=== PATIENT | female | born 1990 | race Caucasian/White ===

== ENCOUNTER → 2022-10-04 12:34 | Outpatient (CLI) | payer OTHER, SELFPAY ==
[2022-10-04 13:56] LABS: Add Manual Diff / Slide Review NO; Basophils Absolute Auto 0 /uL (0-100); Basophils Percent Auto 0.3 % (0-2); Eosinophils Absolute Auto 200 /uL (0-450); Eosinophils Percent Auto 1.4 % (2-4); Hematocrit 37.5 % (36-46); Hemoglobin 12.3 g/dL (12.0-16.0); Lymphocytes Absolute Auto 1800 /uL (1100-4500); Lymphocytes Percent Auto 15.1 % (25-40); Mean Corpuscular HGB Conc 32.7 % (30-36); Mean Corpuscular Hemoglobin 28.1 PG (26-34); Mean Corpuscular Volume 86.1 fL (80-100); Monocytes Absolute Auto 800 /uL (0-900); Neutrophils Absolute Auto 9100 /uL (1500-7000); Neutrophils Percent Auto 76.2 % (50-75); Platelet Count 257 X10^3/uL (150-400); Red Blood Cell Count 4.36 X10^6/uL (4.0-5.2); Red Cell Distribution Width 13.2 % (11.6-14.8); White Blood Cell Count 11.9 X10^3/uL (4.5-11.0)
[2022-10-05 05:37] LABS: RPR Screen Non Reactive (Non Reactive)
[2022-10-05 11:27] LABS: Varicella IgG Antibody 1128 index (Immune >165)
[2022-10-05 16:41] LABS: Hepatitis B Surface Antigen NEGATIVE s/c (NEGATIVE)
[2022-10-05 17:08] LABS: HIV 1 & 2 Ab/Ag 4th Gen Combo NEGATIVE (NEGATIVE); Hep C Virus Ab w/Reflex Quant NEGATIVE s/c (NEGATIVE)
== END ==
PROVIDERS: PCP Internal Medicine; Referring Provider Obstetrics & Gynecology; Visit Provider Obstetrics & Gynecology
DX: Z34.81 Encounter for supervision of other normal pregnancy, first trimester (principal)
CPT/HCPCS: 80055; 86787; 86803; 86850; 86900; 86901; 87389

== ENCOUNTER → 2022-11-29 14:43 | Outpatient (CLI) | payer OTHER, SELFPAY ==
[2022-12-01 22:14] LABS: AFP Value 54.6 ng/mL (.); Gest Age on Col Date 18.3 weeks (.); Insulin Dep Diabetes No (.); OSBR Risk 1IN 6110 (.); Results Report (.); Test Results *Screen Negative* (.)
== END ==
PROVIDERS: PCP Internal Medicine; Referring Provider Obstetrics & Gynecology; Visit Provider Obstetrics & Gynecology
DX: Z34.82 Encounter for supervision of other normal pregnancy, second trimester (principal); Z3A.18 18 weeks gestation of pregnancy
CPT/HCPCS: 36415; 82105

== ENCOUNTER → 2022-12-15 10:16 | Outpatient (CLI) | payer OTHER, SELFPAY ==
--- NOTE | 2022-12-15 10:16 | DI.US.S_ITS ---
PROCEDURE: US OB >= 14 WEEKS FETUS INDICATIONS: 20 week anatomy OUTSIDE/PRIOR DATING DATA: Last menstrual period (LMP): 07/24/2022 LMP-based estimated date of delivery (ABHAY): 04/30/2023. First dating scan (date and location): 10/04/2022. Estimated date of delivery (ABHAY) from first dating scan: 04/26/2023 Working ABHAY is 04/30/2023. TECHNIQUE: Real-time scanning was performed of the fetus, with image documentation and biometric measurements. COMPARISON: [facility], , US OB <= 14 WEEKS FETUS, 10/04/2022, 12:20. FINDINGS: General: A single living intrauterine gestation is present. Presentation: Vertex. Placenta: Placental position is posterior right lateral , without previa. Amniotic fluid index: 14.7 cm, normal range is 5-24 cm. Single deepest vertical pocket is 5.0 cm. heart rate: 147 beats per minute. Maternal cervical canal: 3.8 cm long. Normal lower limit is 2.5 cm. biometrics: Biparietal diameter: 22 weeks 5 days Head circumference: 22 weeks 2 days Abdominal circumference: 21 weeks 5 days Femur length: 22 weeks 3 days Clinically estimated gestational age: 20 weeks 4 days Composite gestational age from present scan: 22 weeks 2 days Estimated weight and percentile: 473 g, 99th percentile Anatomic survey: Neuro: Ventricles are non-dilated at less than 10 mm. Cisterna magna is normal at 3-11 mm. Cerebellum is normal in size and morphology. Nuchal skin fold: Normal at less than 6 mm between 14-21 weeks gestational age. Face: Nose and lips, facial profile are normal. Spine: No evidence for spina bifida. Heart: 4-chambered heart is present, with normal ventricular outflow tracts. Diaphragm: Diaphragm is intact. Stomach: Left-sided stomach is present. Kidneys: No hydronephrosis. Normal is less than 5 mm in 2nd trimester, less than 7 mm in 3rd trimester. Cord: 3-vessel cord has orthotopic insertion. Bladder: Normal in size. Extremities: All 4 extremities identified. IMPRESSION: 1. Single living IUP redemonstrated and interval growth is greater than expected with estimated weight 99th percentile. Recommend short-term follow-up ultrasound to exclude early developing macrosomia. 2. Normal anatomic survey. We strive to produce accurate, complete, and clear reports of imaging services. To assist us in improving patient care, this report was composed using standard report templates and voice recognition software. Therefore, it may contain abnormal punctuation, insertions and/or omissions. Occasional wrong-word or sound-alike substitutions may occur. Though we review the report and make efforts to correct it, we do recommend that the report be read carefully in proper context to recognize any text inaccuracies. Dictated by: Edward MCCORMACK Interpreted: Randi Saenz MD on 12/15/2022 at 13:21 Transcribed by: ANURAG on 12/15/2022 at 13:23 Approved by: Randi Saenz M.D. on 12/15/2022 at 15:51
== END ==
PROVIDERS: PCP Internal Medicine; Referring Provider Obstetrics & Gynecology; Visit Provider Obstetrics & Gynecology
DX: Z34.82 Encounter for supervision of other normal pregnancy, second trimester (principal); Z3A.22 22 weeks gestation of pregnancy
CPT/HCPCS: 76811

== ENCOUNTER → 2022-12-26 14:27 | Outpatient (CLI) | payer OTHER, SELFPAY ==
[2022-12-26 20:12] LABS: Urine N gonorrhoeae NOT DETECTED
[2022-12-26 20:15] LABS: Urine Chlamydia NOT DETECTED
== END ==
PROVIDERS: PCP Internal Medicine; Visit Provider Obstetrics & Gynecology
DX: Z34.82 Encounter for supervision of other normal pregnancy, second trimester (principal); Z3A.24 24 weeks gestation of pregnancy
CPT/HCPCS: 87086; 87491; 87591

== ENCOUNTER → 2023-01-24 08:22 | Outpatient (CLI) | payer OTHER, SELFPAY ==
[2023-01-24 11:12] LABS: Hematocrit 33.6 % (36-46); Hemoglobin 11.5 g/dL (12.0-16.0)
[2023-01-24 11:49] LABS: GTT (PREG) 1 Hour PP 50gm Dose 157 mg/dL (76-139)
== END ==
PROVIDERS: PCP Internal Medicine; Referring Provider Obstetrics & Gynecology; Visit Provider Obstetrics & Gynecology
DX: Z34.82 Encounter for supervision of other normal pregnancy, second trimester (principal); Z3A.26 26 weeks gestation of pregnancy
CPT/HCPCS: 36415; 82950; 85014; 85018

== ENCOUNTER → 2023-04-13 11:34 | Outpatient (CLI) | payer OTHER, SELFPAY ==
[2023-04-14 07:42] LABS: Strep Grp B PCR NEG for Grp B Strep
== END ==
PROVIDERS: PCP Internal Medicine; Visit Provider Obstetrics & Gynecology
DX: Z34.83 Encounter for supervision of other normal pregnancy, third trimester (principal); Z3A.37 37 weeks gestation of pregnancy
CPT/HCPCS: 87653

== ENCOUNTER 2023-04-28 00:10 | Inpatient (IN) | payer OTHER, SELFPAY ==
[2023-04-28 01:13] VITALS: BP 112/58
[2023-04-28 01:32] LABS: Add Manual Diff / Slide Review NO; Basophils Absolute Auto 0 /uL (0-100); Basophils Percent Auto 0.5 % (0-2); Eosinophils Absolute Auto 100 /uL (0-450); Eosinophils Percent Auto 0.6 % (2-4); Hematocrit 29.4 % (36-46); Hemoglobin 9.8 g/dL (12.0-16.0); Lymphocytes Absolute Auto 1300 /uL (1100-4500); Lymphocytes Percent Auto 13.6 % (25-40); Mean Corpuscular HGB Conc 33.3 % (30-36); Mean Corpuscular Volume 78.1 fL (80-100); Monocytes Absolute Auto 500 /uL (0-900); Monocytes Percent Auto 5.4 % (3-14); Neutrophils Absolute Auto 7500 /uL (1500-7000); Neutrophils Percent Auto 79.9 % (50-75); Platelet Count 208 X10^3/uL (150-400); Red Blood Cell Count 3.77 X10^6/uL (4.0-5.2); Red Cell Distribution Width 14.4 % (11.6-14.8); White Blood Cell Count 9.4 X10^3/uL (4.5-11.0)
--- NOTE | 2023-04-28 04:46 | P.HPOB_ITS ---
OB HPI Date/Time Date of admission: 04/28/23 Date Patient Seen: 04/28/23 Time Patient Seen: 03:35 History of Present Condition Chief complaint: LABOR : 2 Para: 1 Estimated Date of Delivery: 04/30/23 Estimated Gestational Age (weeks): 39w 5d Narrative: Carisa Thayer is a 33 year old female Indications Other reason(s) for admission: Patient developed contractions started roughly 910 on the evening of the 15. These became progressively stronger with time. She presented to labor and delivery at midnight. At that point her membranes had not ruptured. History of Present care: good care and initiated at week # (10) Dating criteria: other (IUI) Ultrasounds: normal 1st trimester US Medical complications: respiratory (Patient has asthma which is currently active. She is currently using an inhaler which she used upon arrival here to labor and delivery.) Preadmission Labs Blood type: A (+) positive -: Antibody screen: negative, Cystic fibrosis screen: negative, GBS status: negative, HBsAG: negative, HIV: negative, HSV 1: negative, HSV 2: negative and RPR/VDLR: negative -: Chlamydia screen: not detected and Gonorrhea screen: not detected -: Rubella: immune and Varicella: immune HCAB: negative PAP: Normal 1 hr GTT: 157 Narrative: Patient has started monitoring blood sugars at 18 weeks. Her fastings all fell below 95 and her 2 hour postprandials were all less than 200. She managed her diet by restricting her carbs and sugars. And was able to maintain good blood sugars throughout her . Prior (ies) History: First did not have any gestational diabetes. It was also IUI from the same donor. Evaluation Evaluation Baseline heart rate: 130 Variability: Average (6-10) monitor accelerations: Present Monitor Decelerations: Absent Uterine Contraction Intensity: Strong/Firm Category of Tracing: Reactive Status: Category l Dilation (cm): 5 Effacement (%): 90 station: 0 Position of cervix: mid Consistency: soft [facility] Medical History (Updated 04/17/23 @ 09:35 by Madison Deshpande MD) Acne (~2000) Chicken pox Eczema (~1989) Fibroids (~2021) Mild exercise-induced asthma (~1989) Scalp psoriasis (~1994) Torsion of bowel Surgical History (Updated 09/29/22 @ 19:03 by Urmila Pope) Anesthesia H/O tympanostomy (~1992) History of appendectomy (~88) History of removal of skin mole (~2004) Hx of LASIK (~2016) [place] teeth extracted (~2005) Family History (Updated 09/29/22 @ 19:04 by Urmila Pope) Grandmother Colon cancer Grandmother Arthritis Cataracts, both eyes Hypothyroidism Heart valve replaced Congenital heart defect Mother Hypothyroidism Colon polyps Father Diabetes mellitus Hypertension Hyperlipidemia Grandmother Emphysema lung Cancer Grandfather Pancreatic cancer Brother Asthma Social History marital status: unmarried,single household members: spouse and family (mother and brother) lives independently: Yes caregiver/support person: Yes housing: house pets and animals: Yes (1 dog, 1 cat, not managing litter box) education level: master's degree occupational status: employed (works from home) current occupational exposures/hazards: No special omero needs: No travel history: recent (domestic only) seatbelt use: always water heater temp set < 120 deg: Yes working smoke detector in home: Yes fire extinguisher in home: Yes carbon monox detector in home: Yes firearms in home: No do you feel safe at home: Yes Smoking Status: Never smoker second hand exposure: No alcohol intake: never substance use type: does not use during the past year weight has: remained stable well-balanced diet: daily or most days daily servings fruits/ve or more times/day caffeine: Yes (very rarely and minimally) Type(s) of exercise: walking, weight lifting, running and yoga frequency: daily duration: 30-45 minutes/day Meds Home Medications and Allergies Home Medications Medication Instructions Recorded Confirmed Type [id number] 400 mcg-om3 35 mg-dha 25 1 tab PO DAILY 09/07/22 04/24/23 History mg-epa 5 mg-fish oil chewable tablet calcium carbonate 500 mg calcium 1,000 mg PO DAILY 09/07/22 04/24/23 History (1,250 mg) tablet levalbuterol tartrate 45 2 puff inhalation Q4-6H PRN 09/07/22 04/24/23 History mcg/actuation aerosol inhaler (Xopenex HFA) omega 2-ope-gwp-fish oil 300 1 cap PO DAILY 09/07/22 04/24/23 History mg-1,000 mg capsule (Fish Oil) levothyroxine 25 mcg tablet 25 mcg PO DAILY #60 tabs 10/13/22 04/24/23 Rx blood-glucose meter,continuous #1 ea 01/24/23 04/24/23 Rx Allergies Allergy/AdvReac Type Severity Reaction Status Date / Time amoxicillin [From Augmentin] Allergy Intermediate Hives Verified 04/24/23 09:43 clavulanic acid Allergy Intermediate Hives Verified 04/24/23 09:43 [From Augmentin] Review of Systems Constitutional Constitutional: Reports system reviewed and no additional complaints, except as documented Eyes Eyes: Reports system reviewed and no additional complaints, except as documented OB Exam Vital signs Blood Pressure: 112/58 HENMT Head: normal to inspection Mouth: oral mucosae normal, lip normal and tongue normal Eyes General: appearance normal, both eyes and all related structures (No scleral icterus) Resp Effort & Inspection: normal respiratory effort and able to speak in complete sentences Auscultation: clear to auscultation bilaterally Cardio Rate: regular rate Rhythm: regular rhythm Heart Sounds: S1 normal and S2 normal Bimanual Exam- Vagina & Uterus: uterine size normal Presentation: vertex Amniotic Fluid: clear Objective Labs 04/28/23 01:23 Labs: Laboratory Results - last 24 hr 04/28/23 04/28/23 01:23 01:23 WBC 9.4 RBC 3.77 L Hgb 9.8 L Hct 29.4 L MCV 78.1 L MCH 26.0 MCHC 33.3 RDW 14.4 Plt Count 208 Neut % (Auto) 79.9 H Lymph % (Auto) 13.6 L [place] % (Auto) 5.4 Eos % (Auto) 0.6 L Baso % (Auto) 0.5 Neut # (Auto) 7500 H Lymph # (Auto) 1300 [place] # (Auto) 500 Eos # (Auto) 100 Baso # (Auto) 0 Blood Type A Positive Antibody Screen Negative Assessment and Plan Assessment and Plan Assessment and Plan narrative: Patient is a 33-year-old female at 39 weeks and 5 days via IUI. This occurred on the 07 of August. Her course has been unremarkable with the exception of an elevated 50 g Glucola which was treated proactively with diet control as well as glucose monitoring which all fell within normal limits. She presents with spontaneous onset of contractions with cervical dilatation. At this point we plan to admit patient place epidural and anticipate a spontaneous vaginal delivery. Patient is not clinically hypothyroid but was placed on thyroid medication to promote her achieving pr egnancy. Time Spent with Patient Total time spent with greater than 50% in coordination of care (as documented) at patient's floor/unit and/or counseling patient:: 15-24 minutes
[2023-04-28 05:16] VITALS: BP 112/58
--- NOTE | 2023-04-28 05:17 | PM.OBPRVD ---
Events: Gestational Diabetes (Patient had an elevated 50 g Glucola at 1:57 a.m. however she did not perform a 3 hour GTT but chose to start monitoring her blood sugars at roughly 18 weeks. Her values were controlled with diet alone she did not require any medication or insulin.) and Other (Patient conceived with IUI.) Labor & Delivery Delivery date: 04/28/23 Intrapartal Events: None Cervical ripening method: none Induction method: none Delivery monitor: external FHT and external uterine Route of delivery: L&D Laceration Description: Perineal - 2nd Degree Delivery repair: vicryl (The vaginal mucosa was closed with 2-0 Vicryl. The perineum was reapproximated with 2-0 Vicryl and the perineal subcutaneous was closed with 3-0 Vicryl. A rectal exam was performed and no sutures were palpated she showed evidence of good sphincter tone.) Estimated blood loss (mL): 150 Anesthesia Type: Epidural Narrative: Patient presented to labor and delivery at roughly midnight at which time she was noted to be 5 cm 90%. She was admitted and an epidural was placed for labor analgesia. She spontaneously ruptured at 2:00 a.m. she reached complete at 330 physician was summoned and she started pushing at 3:40 a.m.. She delivered a live male infant occiput anterior at 3:51 a.m.. She suffered a second-degree laceration at time of delivery. The placenta followed at 358 it was inspected and noted to be intact. Repair was accomplished utilizing 2-0 and 3-0 Vicryl in the standard fashion. EBL was 150 cc.
[2023-04-28] MEDS: ACETAMINOPHEN 325 MG TABLET 650 MG PO ×3 (05:48→18:35)
[2023-04-28] MEDS: DERMOPLAST SPRAY 20% 60 ML 1 SPRAY TOP (05:49)
[2023-04-28] MEDS: IBUPROFEN 600 MG TABLET PO ×3 (05:49→18:35)
[2023-04-28 09:48] LABS: Add Manual Diff / Slide Review NO; Basophils Absolute Auto 100 /uL (0-100); Basophils Percent Auto 0.5 % (0-2); Eosinophils Absolute Auto 0 /uL (0-450); Eosinophils Percent Auto 0.1 % (2-4); Hematocrit 27.9 % (36-46); Hemoglobin 9.3 g/dL (12.0-16.0); Lymphocytes Absolute Auto 1500 /uL (1100-4500); Lymphocytes Percent Auto 12.1 % (25-40); Mean Corpuscular HGB Conc 33.3 % (30-36); Mean Corpuscular Hemoglobin 25.8 PG (26-34); Mean Corpuscular Volume 77.6 fL (80-100); Monocytes Absolute Auto 900 /uL (0-900); Monocytes Percent Auto 7.3 % (3-14); Neutrophils Absolute Auto 10100 /uL (1500-7000); Platelet Count 189 X10^3/uL (150-400); Red Cell Distribution Width 14.7 % (11.6-14.8); White Blood Cell Count 12.6 X10^3/uL (4.5-11.0)
[2023-04-28] MEDS: LANOLIN OINT 7 GM 1 APPLIC TOP (11:58)
[2023-04-29] MEDS: IBUPROFEN 600 MG TABLET PO ×2 (00:28→06:16)
[2023-04-29] MEDS: ACETAMINOPHEN 325 MG TABLET 650 MG PO ×2 (00:29→06:19)
--- NOTE | 2023-04-29 09:14 | P.DS_ITS ---
Discharge Providers Provider Date of admission: 04/28/23 00:10 Discharge Date: 04/29/23 Primary care physician: Basilia Luna MD Consults: 04/28/23 00:36 Consult to Anesthesiology Urgent Comment: Consulting Provider: Anesthesiologist Reason for consultation: Epidural 04/29/23 05:24 Consult to Senior Data Warehouse Architect Routine Comment: Discharge provider: Venu West MD Summary Hospital Course Date Patient Seen: 04/29/23 Time Patient Seen: 09:14 Diagnoses: 39 weeks Active labor IUI Hospital Course: Patient was admitted at roughly 5 cm. She had standard progress to complete and on the morning of the she had a spontaneous vaginal delivery. During labor she had an epidural placed for analgesia. She spontaneously ruptured. She suffered a second-degree laceration at time of delivery. Her course has been unremarkable she is taking regular diet her pain is controlled with Tylenol and Motrin. She rates her pain as roughly 0/10 at this time. Patient is . She does complain of cramping while . Peripartum Data Infant Delivery Method: Natural Vaginal Laceration Description: Perineal - 2nd Degree (Perineum was repaired with 2-0 and 3-0 Vicryl.) complications: none Discharge Diagnosis (1) Encounter for supervision of normal in third trimester: Status: Acute Problem Details: Patient had a successful unremarkable vaginal delivery. (2) Carrier of spinal muscular atrophy: Status: Acute Status at Discharge Cognitive/behavioral status at discharge: oriented Functional status at discharge: independent ambulation Time Spent with Patient Time attestation: Total time spent providing and/or coordinating discharge services: Time spent: Less than 30 minutes Specific discharge activities: Patient instructed in pelvic rest for the next 6 weeks. Objective Labs 04/28/23 09:33 Labs: Laboratory Results - last 24 hr 04/28/23 09:33 WBC 12.6 H RBC 3.60 L Hgb 9.3 L Hct 27.9 L MCV 77.6 L MCH 25.8 L MCHC 33.3 RDW 14.7 Plt Count 189 Neut % (Auto) 80.0 H Lymph % (Auto) 12.1 L [place] % (Auto) 7.3 Eos % (Auto) 0.1 L Baso % (Auto) 0.5 Neut # (Auto) 78624 H Lymph # (Auto) 1500 [place] # (Auto) 900 Eos # (Auto) 0 Baso # (Auto) 100 Exam Const General: cooperative and comfortable GI Palpation: soft and mass (Uterus is palpated is nontender it is roughly 3 fingerbreadths below the um) Extrem General: no pedal edema and no calf tenderness Discharge Plan Discharge Plan Patient Disposition: Home Discharge orders & Medications Prescriptions: Continued levothyroxine 25 mcg tablet 25 mcg PO DAILY Qty: 60 4RF [id number] oil 400 mcg-35 mg -25 mg-5 mg tablet,chewable 1 tab PO DAILY calcium carbonate 500 mg calcium (1,250 mg) tablet 1,000 mg PO DAILY omega 4-khl-ibh-fish oil [Fish Oil] 300-1,000 mg capsule 1 cap PO DAILY levalbuterol tartrate [Xopenex HFA] 45 mcg/actuation HFA aerosol inhaler 2 puff inhalation Q4-6H PRN (Reason: Bronchodilation) Follow up/Referrals: Basilia Luna MD [Primary Care Provider] - Diet/Activity/Treatments Diet: Regular Skin/Wound/Dressing Care Report to your healthcare provider any signs of infection, such as:: chills, fever and increased pain Visit Report/Discharge Packet Stand Alone Forms: Patient Portal/API, Stroke Signs & Symptoms Discharge Data Primary Care Provider: Basilia Luna Discharges patient from system. Discharge Date/Time: 04/29/23 09:22
== END 2023-04-29 11:43 | disposition home or self-care (01) | DRG 807 ==
PROVIDERS: Admitting Provider Obstetrics & Gynecology; PCP Internal Medicine; Referring Provider Obstetrics & Gynecology; Visit Provider Obstetrics & Gynecology
DX: O24.420 Gestational diabetes mellitus in childbirth, diet controlled (principal); Z37.0 Single live birth; O70.1 Second degree perineal laceration during delivery; Z3A.39 39 weeks gestation of pregnancy; O99.892 Other specified diseases and conditions complicating childbirth; J45.909 Unspecified asthma, uncomplicated
CPT/HCPCS: 36415; 59050; 59400; 59409; 85025; 86850; 86900; 86901; G0379